=== PATIENT | female | born 1990 | race Caucasian/White ===

== ENCOUNTER 2020-02-17 13:56 | Emergency (ER) | payer BC, OTHER ==
[~2020-02-17] VITALS: Ht 170.2 cm; Wt 68.5 kg
[2020-02-17 14:54] LABS: BASO % 0.3 % (0.0-1.0); EOS # 0.1 10^3/uL (0.0-0.5); HEMATOCRIT 41.5 % (36.0-47.0); HEMOGLOBIN 13.7 g/dl (12.0-15.5); LYMPH # 1.5 10^3/uL (1.5-5.0); LYMPH % 24.3 % (24.0-44.0); MEAN CORPUSCULAR HEMOGLOBIN 30.2 pg (27.0-33.0); MEAN CORPUSCULAR VOLUME 91.4 fl (80.0-96.0); MONO # 0.4 10^3/uL (0.0-0.8); MONO % 5.6 % (0.0-5.0); NEUTROPHILS # 4.3 10^3/uL (1.5-8.5); NEUTROPHILS % 68.5 % (36.0-66.0); PLATELET COUNT, AUTOMATED 292 10^3/uL (150-450); RED BLOOD COUNT 4.54 10^6/uL (4.00-5.40); WHITE BLOOD COUNT 6.3 10^3/uL (4.0-10.0)
[2020-02-17 15:11] LABS: HCG, SERUM QUALITATIVE NEGATIVE (NEGATIVE)
--- NOTE | 2020-02-17 15:55 | REP ---
INDICATION: pelvic pain. COMPARISON: None. TECHNIQUE: Only transabdominal images obtained. FINDINGS: Uterus is anteverted and measures 6.6 x 2.9 x 5 cm. The central endometrial stripe has a thickness of 3.2 mm uterus is slightly deviated towards the right. No uterine mass or contour abnormality seen. The right ovary 3.9 x 1.6 x 1.6 cm the left ovary 3.2 x 2 x 1.8 cm. Neither ovary shows cyst or solid mass and there is no adjacent fluid to the ovaries or in the cul-de-sac. Doppler tracing shows cystic index 0.63 for the right renal artery and 0.57 on the left, no evidence for torsion. Incidentally noted is a large amount of stool seen above the uterus and in the right lower quadrant. IMPRESSION: Normal pelvic organs on the pelvic ultrasound with no ureteral, endometrial or ovarian sonographic abnormality. No pelvic free fluid. Normal Doppler tracings and blood flow to the ovaries, no torsion. A moderately large volume of stool above the uterus and in the right lower quadrant. <Electronically signed by Melchor Castellanos > 02/17/20 [id number]
[2020-02-17] MEDS ORDERED: MIRA3350 PO (16:56)
[2020-02-17 17:00] VITALS: BP 113/68
[2020-02-17 18:00] LABS: CHLAMYDIA DNA AMPLIFICATION NEGATIVE (NEGATIVE); GC DNA AMPLIFICATION NEGATIVE (NEGATIVE)
== END 2020-02-17 17:31 | disposition home or self-care (01) ==
LOC: M ED 13:56
DX: K59.00 Constipation, unspecified (principal); Z88.0 Allergy status to penicillin